=== PATIENT | male | born 1960 | race Hispanic/Latino ===

== ENCOUNTER 2020-08-04 06:11 | Inpatient (IN) | payer MEDICAID ==
--- NOTE | 2020-08-04 20:36 | Consultation ---
History of Present Illness - Reason for Consult Consult date: 08/04/20 medical management Requesting physician: ARI CHEEK - History of Present Illness 59 YO Male with Obesity,HTN, DM-diet controlled, Vascular Dementia with Behavior Disturbance admitted to [facility] for Psychiatric Stabilization. Consult placed cy Dr. Cheek for medical management. Pt seen and evaluated in his room. Pt denies fever, chills, CP, palpitations, NVD, Trauma, known COVID 19 Exposure, or recent ill contacts. No reported nursing events. No reported nursing events. Past History Past Medical History: hypertension, hyperlipidemia, other (See HPI) Past Surgical History: Other (eye surgery) Social history: single. denies: smoking, alcohol abuse, prescription drug abuse Family history: hypertension Medications and Allergies Allergies Allergy/AdvReac Type Severity Reaction Status Date / Time No Known Allergies Allergy Verified 08/04/20 13:23 Home Medications Medication Instructions Recorded Confirmed Last Taken Type Benztropine [Cogentin] 1 mg PO BID 08/04/20 08/04/20 Unknown History Divalproex ER [DepaKOTE ER] 1,000 mg PO HS 08/04/20 08/04/20 Unknown History Metoprolol Xl [Metoprolol 25 mg PO QDAY 08/04/20 08/04/20 Unknown History SUCCINATE ER TAB] Paliperidone [Invega] 6 mg PO DAILY 08/04/20 08/04/20 Unknown History Potassium Chloride [K-Dur] 10 meq PO QDAY 08/04/20 08/04/20 Unknown History Sertraline [Zoloft] 100 mg PO QDAY 08/04/20 08/04/20 Unknown History Simvastatin 40 mg PO HS 08/04/20 08/04/20 Unknown History Tamsulosin [Flomax] 0.4 mg PO QDAY 08/04/20 08/04/20 Unknown History amLODIPine 10 mg PO DAILY 08/04/20 08/04/20 Unknown History hydroCHLOROthiazide 12.5 mg PO DAILY 08/04/20 08/04/20 Unknown History [Hydrochlorothiazide] lisinopriL [Lisinopril] 10 mg PO DAILY 08/04/20 08/04/20 Unknown History traZODone [Desyrel] 150 mg PO QHS 08/04/20 08/04/20 Unknown History Review of Systems Constitutional: no weight loss, no fever, no chills, no sweats Ears, nose, mouth and throat: no ear pain, no tinnitis, no decreased hearing, no sinus pressure Cardiovascular: no chest pain, no rapid/irregular heart beat, no edema, no lightheadedness Respiratory: no cough, no cough with sputum, no hemoptysis, no shortness of breath Gastrointestinal: no abdominal pain, no nausea, no diarrhea, no constipation, no hematemesis, no coffee ground emesis Genitourinary Male: no hematuria, no flank pain, no discharge, no urinary frequency, no urinary hesitancy, no incontinence Rectal: no pain, no incontinence Musculoskeletal: no neck stiffness, no shooting arm pain, no low back pain, no shooting leg pain Integumentary: no rash, no pruritis, no sores Neurological: no head injury, no paralysis, no weakness, no numbness, no seizures, no syncope, no tremors, no ataxia Psychiatric: depression, no change in appetite, no disorientation, no hallucinations Endocrine: no cold intolerance, no polyphagia, no polydipsia, no polyuria, no nocturia, no flushing, no weight change Hematologic/Lymphatic: no easy bleeding, no lymphedema Allergic/Immunologic: no urticaria, no anaphylaxis Exam - Constitutional General appearance: Present: obese - EENT Eyes: Present: PERRL ENT: hearing intact, clear oral mucosa - Neck Neck: Present: supple, normal ROM - Respiratory Respiratory effort: normal Respiratory: bilateral: CTA - Cardiovascular Heart Sounds: Present: S1 & S2. Absent: rub, click - Extremities Extremities: pulses symmetrical, No edema Peripheral Pulses: within normal limits - Abdominal General gastrointestinal: Present: soft, non-tender, non-distended, normal bowel sounds Male genitourinary: Present: normal - Integumentary Integumentary: Present: clear, warm, dry - Musculoskeletal Musculoskeletal: gait normal, strength equal bilaterally - Psychiatric Psychiatric: appropriate mood/affect, intact judgment & insight - Neurologic Neurologic: CNII-XII intact, moves all extremities Results - Labs CBC & Chem 7: 08/06/20 10:16 08/06/20 10:16 Assessment and Plan - Patient Problems (1) Hypertension Current Visit: Yes Status: Acute Qualifiers: Hypertension type: essential hypertension Qualified Code(s): I10 - Essential (primary) hypertension Plan to address problem: Monitor blood pressure every shift, continue current monitoring. Patient remains normotensive at this time. (2) Diabetes Current Visit: Yes Status: Acute Plan to address problem: Diet controlled, consistent carbohydrate diet, supportive care. (3) Schizophrenia Current Visit: Yes Status: Acute Plan to address problem: Continue medical management. Supportive care. (4) Vascular dementia with behavioral disturbance Current Visit: Yes Status: Acute Plan to address problem: Verbal prompting, verbal redirection, supportive care, benzodiazepine therapy as clinically indicated
--- NOTE | 2020-08-05 07:38 | History and Physical Report ---
GP History & Physical - History of Present Illness Date of admission: 08/04/20 Date of Examination: 08/05/20 Reason for Admission: Impaired reality testing, Psychopathology interference History of Present Illness: HPI Attempt to evaluate patient in the room this morning, patient appears disorganized, expressing thoughts of internal stimuli responses. Patient reports he wants to fight wall, and also wants to love Socorro Wiley. Patient then began to ryhme and rap some songs, says he stung like a bee, fly like a butterfly, making random conversation with self. Patient had presented to [facility], with chief complaint of hallucinations. Patient reported he has been having more hallucinations by the day which seems to be getting worse, and affecting his daily life with some mental disturbances. At this moment patient had denied having any commanding hallucination attributed to SI or HI. Reported that he does see a psychiatrist symptoms has been worsening. PAST PSYCHIATRIC HISTORY: Diagnoses: Schizophrenia, insomnia Suicide attempts or Self-harm behavior Prior psychiatric hospitalizations Substance Abuse history: Previous psychiatric medications tried: Depakote, fluphenazine, trazodone, Ambien, Invega, sertraline, Outpatient treatment: None PAST MEDICAL HISTORY: Hypertension, diabetes, history of subdural hematoma Family Psychiatric History: None reported or documented SOCIAL HISTORY Marital Status: n/a Living Arrangements: n/a Employment Status: n/a Access to guns/weapons: n/a Education: n/a History of Abuse: n/a Legal History: n/a REVIEW OF SYSTEMS ROS cannot be reliably obtained from the patient due to his confusion. MENTAL STATUS EXAMINATION General Appearance and Behavior: Age appropriate, good hygiene, wearing appropriate clothes, poor eye contact, uncooperative with questioning. Cooperation: disengaged Psychomotor Behavior: Psychomotor agitation Mood: n/a Affect and affective range: euthymic, euphoric Thought Process: Illogical, echolalial Thought Content: delusional Speech: pressured, loud volume at times Intellectual Functioning: Average Suicidal Ideation: n/a Homicidal Ideation: n/a Impulse Control: Impaired Insight and Judgment: Limited insight and judgment Memory: impaired Attention: Divided attention impaired Orientation: Alert, Assessment and Plan - Psychiatric problem (1) Schizophrenia Current Visit: Yes Status: Acute Treatment Plan Will start patient on IM geodon BID for acute psychosis. Transition to oral meds Patient admitted for inpatient psychiatric evaluation, medication adjustment and close monitoring The patient's behavior, mood, sleep and appetite will be closely monitored. Patient enrolled in individual and group therapeutic sessions and encouraged to attend. Patient provided with a safe and structured environment. Patient's physical health needs will be addressed by the Hospitalist. Hospitalist Consulted Labs including CBC, CMP, Lipid profile and Hemoglobin A1C levels ordered for baseline reference Social Assessment will be completed and the Metal Burrer will work with patient and family to ensure a suitable and safe disposition Medication adjustment will be made as clinically indicated Usual Wellness Religious/Preservation: - Start Trazodone 50 mg po QHS & 50 mg po QHS PRN between 10 PM & 2 AM for insomnia - Start Melatonin 5 mg po QHS to promote circadian rhythm - Start Joanna-3 for brain health, reduce impulsivity, and as adjunctive treatment for mood disorder, continue upon discharge given overall benefits. - Start B1 prophylaxis with 200 mg po for 5 days The patient agreed on the treatment plan, understood the risk, benefit, alternative treatment, potential consequence of no treatment, and gave informed consent. Initial Certification Inpatient psych services: I certify that the inpatient psychiatric services are required for treatment that could reasonably be expected to improve the patient's condition. Estimated days: 7 Post hospital care: primary care provider, psychiatric provider Legal Status: Voluntary Patient Problems: Current Active Problems Schizophrenia (Acute) Reaction to Hospitalization: Accepting Medications and Allergies Allergies Allergy/AdvReac Type Severity Reaction Status Date / Time No Known Allergies Allergy Verified 08/04/20 13:23 Home Medications Medication Instructions Recorded Confirmed Last Taken Type Benztropine [Cogentin] 1 mg PO BID 08/04/20 08/04/20 Unknown History Divalproex ER [DepaKOTE ER] 1,000 mg PO 08/04/20 08/04/20 Unknown History Metoprolol Xl [Metoprolol 25 mg PO QDAY 08/04/20 08/04/20 Unknown History SUCCINATE ER TAB] Paliperidone [Invega] 6 mg PO DAILY 08/04/20 08/04/20 Unknown History Potassium Chloride [K-Dur] 10 meq PO QDAY 08/04/20 08/04/20 Unknown History Sertraline [Zoloft] 100 mg PO QDAY 08/04/20 08/04/20 Unknown History Simvastatin 40 mg PO HS 08/04/20 08/04/20 Unknown History Tamsulosin [Flomax] 0.4 mg PO QDAY 08/04/20 08/04/20 Unknown History amLODIPine 10 mg PO DAILY 08/04/20 08/04/20 Unknown History hydroCHLOROthiazide 12.5 mg PO DAILY 08/04/20 08/04/20 Unknown History [Hydrochlorothiazide] lisinopriL [Lisinopril] 10 mg PO DAILY 08/04/20 08/04/20 Unknown History traZODone [Desyrel] 150 mg PO QHS 08/04/20 08/04/20 Unknown History Results - Results Labs/Vitals: Laboratory Last Values POC Glucose 93 mg/dL (70-105) 08/04/20 11:55 Last Vital Signs Temp 98.8 F 08/04/20 19:37 Pulse 96 H 08/04/20 19:37 Resp 08/04/20 19:37 BP 156/79 08/04/20 19:37 Pulse Ox 97 08/04/20 19:37 Physical Examination - Constitutional Vitals: Vital Signs Temp Pulse Resp BP Pulse Ox 98.8 F 96 H 20 156/79 97 08/04/20 19:37 08/04/20 19:37 08/04/20 19:37 08/04/20 19:37 08/04/20 19:37 Temperature -Last 24 Hours Temperature 98.8 F Mental Status Exam - Vital signs Last Vital Signs Temp 98.8 F 08/04/20 19:37 Pulse 96 H 08/04/20 19:37 Resp 08/04/20 19:37 BP 156/79 08/04/20 19:37 Pulse Ox 97 08/04/20 19:37 Assessment and Plan - Psychiatric problem (1) Schizophrenia Current Visit: Yes Status: Acute Physician Certification - Certification Statement Physician Certification Statement: This is an acknowledgement statement that ANTHONY SILVESTRE is a 59 year old M who requires inpatient psychiatric admission for treatment which could reasonably be expected to improve the patient's condition for Estimated period of time patient will need to remain in the hospital: [ ] Plan for post-hospital care: [ ]
[2020-08-05] MEDS ORDERED: LORazepam 2 MG/ML VIAL IM PRN (10:09)
[2020-08-05] MEDS ORDERED: WATER FOR INJ Sterile (PF) 10 ML ONE ×2 (10:17→20:25)
[2020-08-05] MEDS: ZIPRASIDONE MESYLATE 20 MG VIAL IM SCH ×2 (10:25→21:25)
[2020-08-05] MEDS: BENZTROPINE 1 MG TAB PO SCH ×2 (11:00→21:25)
[2020-08-05] MEDS: PALIPERIDONE ER 3 MG TAB PO SCH (11:00)
[2020-08-05] MEDS: SERTRALINE 100 MG TAB PO SCH (11:00)
[2020-08-05] MEDS: DIVALPROEX ER 500 MG TAB PO SCH (21:25)
[2020-08-05] MEDS: traZODone 100 MG TAB PO SCH (21:25)
--- NOTE | 2020-08-06 08:32 | Progress Note ---
Subjective Date of service: 08/06/20 Principal diagnosis: (1) Schizophrenia Subjective Comment: Per Psych Nurse: Patient was very anxious hyper verbal and acting in a sexually inappropriate manner, pt walking in the hallway naked and talking loudly and touching himself, pt was redirected to his room, prn ativan 2mg im given, with good effect, pt was medications compliant, in bed sleeping at present, no distress noted, will continue to monitor. Psych Progress Patient seen this a.m. in activity room, reduced psychomotor activity, patient reported that today he plans to rest and participate in activities. He has a plan to take his medication and get his room clean. Patient apologized for his actions yesterday. Patient unaware about how he got naked and patient about the hallway in the presence of other patients. reason for continuing inpatient treatment: We will transition from IM Geodon to her Geodon today, continue to observe for mood lability REVIEW OF SYSTEMS ROS cannot be reliably obtained from the patient due to his confusion. MENTAL STATUS EXAMINATION General Appearance and Behavior: Age appropriate, good hygiene, wearing appropriate clothes, poor eye contact, uncooperative with questioning. Cooperation: disengaged Psychomotor Behavior: Psychomotor normal Mood: Feeling okay Affect and affective range: euthymic, euphoric Thought Process: Illogical, Thought Content: delusional Speech: pressured, loud volume at times Intellectual Functioning: Average Suicidal Ideation: Denies Homicidal Ideation: Denies Impulse Control: Impaired Insight and Judgment: Limited insight and judgment Memory: impaired Attention: Divided attention impaired Orientation: Alert, Assessment and Plan - Psychiatric problem (1) Schizophrenia Current Visit: Yes Status: Acute Treatment Plan Will start patient on IM geodon BID for acute psychosis. Transition to oral meds Patient admitted for inpatient psychiatric evaluation, medication adjustment and close monitoring The patient's behavior, mood, sleep and appetite will be closely monitored. Patient enrolled in individual and group therapeutic sessions and encouraged to attend. Patient provided with a safe and structured environment. Patient's physical health needs will be addressed by the Hospitalist. Hosp italist Consulted Labs including CBC, CMP, Lipid profile and Hemoglobin A1C levels ordered for baseline reference Social Assessment will be completed and the Gear Milling Machine Set Up Operator will work with patient and family to ensure a suitable and safe disposition Medication adjustment will be made as clinically indicated Usual Wellness Amish/Preservation: - Start Trazodone 50 mg po QHS & 50 mg po QHS PRN between 10 PM & 2 AM for insomnia - Start Melatonin 5 mg po QHS to promote circadian rhythm - Start Leander-3 for brain health, reduce impulsivity, and as adjunctive treatment for mood disorder, continue upon discharge given overall benefits. - Start B1 prophylaxis with 200 mg po for 5 days The patient agreed on the treatment plan, understood the risk, benefit, alternative treatment, potential consequence of no treatment, and gave informed consent. Initial Certification Inpatient psych services: I certify that the inpatient psychiatric services are required for treatment that could reasonably be expected to improve the patient's condition. Estimated days: 6 Post hospital care: primary care provider, psychiatric provider Assessment and Plan - Patient Problems (1) Schizophrenia Current Visit: Yes Status: Acute Medications and Allergies Allergies Allergy/AdvReac Type Severity Reaction Status Date / Time No Known Allergies Allergy Verified 08/04/20 13:23 Home Medications Medication Instructions Recorded Confirmed Last Taken Type Benztropine [Cogentin] 1 mg PO BID 08/04/20 08/04/20 Unknown History Divalproex ER [DepaKOTE ER] 1,000 mg PO 08/04/20 08/04/20 Unknown History Metoprolol Xl [Metoprolol 25 mg PO QDAY 08/04/20 08/04/20 Unknown History SUCCINATE ER TAB] Paliperidone [Invega] 6 mg PO DAILY 08/04/20 08/04/20 Unknown History Potassium Chloride [K-Dur] 10 meq PO QDAY 08/04/20 08/04/20 Unknown History Sertraline [Zoloft] 100 mg PO QDAY 08/04/20 08/04/20 Unknown History Simvastatin 40 mg PO 08/04/20 08/04/20 Unknown History Tamsulosin [Flomax] 0.4 mg PO QDAY 08/04/20 08/04/20 Unknown History amLODIPine 10 mg PO DAILY 08/04/20 08/04/20 Unknown History hydroCHLOROthiazide 12.5 mg PO DAILY 08/04/20 08/04/20 Unknown History [Hydrochlorothiazide] lisinopriL [Lisinopril] 10 mg PO DAILY 08/04/20 08/04/20 Unknown History traZODone [Desyrel] 150 mg PO QHS 08/04/20 08/04/20 Unknown History Active Meds: Active Medications Benztropine Mesylate (Benztropine 1 Mg Tab) 1 mg PO BID [facility] Last Admin: 08/05/20 21:25 Dose: 1 mg Documented by: Divalproex Sodium (Divalproex Er 500 Mg Tab) 1,000 mg PO [facility] Last Admin: 08/05/20 21:25 Dose: 1,000 mg Documented by: Lorazepam (Lorazepam 2 Mg/Ml Vial) 2 mg IM Q4H PRN PRN Reason: Agitation Last Admin: 08/05/20 12:33 Dose: 2 mg Documented by: Paliperidone (Paliperidone Er 3 Mg Tab) 6 mg PO QDAY [facility] Last Admin: 08/05/20 11:00 Dose: 6 mg Documented by: Sertraline HCl (Sertraline 100 Mg Tab) 100 mg PO QDAY [facility] Last Admin: 08/05/20 11:00 Dose: 100 mg Documented by: Trazodone HCl (Trazodone 100 Mg Tab) 100 mg PO QHS [facility] Last Admin: 08/05/20 21:25 Dose: 100 mg Documented by: Ziprasidone (Ziprasidone Mesylate 20 Mg Vial) 10 mg IM BID [facility] Stop: 08/06/20 10:01 Last Admin: 08/05/20 21:25 Dose: 10 mg Documented by: Results - Results Labs/Vitals: Laboratory Last Values POC Glucose 90 mg/dL (70-105) 08/06/20 06:20 Last Vital Signs Temp 98.6 F 08/05/20 22:00 Pulse 86 08/05/20 22:00 Resp 18 08/05/20 22:00 BP 146/90 08/05/20 22:00 Pulse Ox 97 08/05/20 22:00
[2020-08-06] MEDS ORDERED: HALOPERIDOL LACTATE 5 MG/1 ML INJ IM PRN (09:37)
[2020-08-06] MEDS: SERTRALINE 100 MG TAB PO SCH (09:39)
[2020-08-06] MEDS: BENZTROPINE 1 MG TAB PO SCH ×2 (09:39→21:32)
[2020-08-06] MEDS: PALIPERIDONE ER 3 MG TAB PO SCH (09:39)
[2020-08-06] MEDS: ZIPRASIDONE MESYLATE 20 MG VIAL IM SCH (10:02)
[2020-08-06] MEDS: ZIPRASIDONE 40 MG CAP PO SCH ×2 (10:04→21:31)
[2020-08-06 11:44] LABS: Alanine Aminotransferase 17 units/L (7-56); Albumin 4.2 g/dL (3.9-5); BUN/Creatinine Ratio 24; Blood Urea Nitrogen 17 mg/dL (9-20); Calcium 9.7 mg/dL (8.4-10.2); Chol/HDL Ratio 2.21 %; HDL Cholesterol 57 mg/dL (40-59); Hemolysis Index 16; LDL Cholesterol,Direct 60 mg/dL (50-130)
[2020-08-06 11:48] LABS: Basophils % (Auto) 0.2 % (0.0-1.8); Eosinophils # (Auto) 0.1 K/mm3 (0.0-0.4); Eosinophils % (Auto) 1.4 % (0.0-4.3); Hemoglobin 13.8 gm/dl (11.8-15.2); Mean Corpuscular HGB Conc 35 % (32-34); Mean Corpuscular Volume 92 fl (84-94); Monocytes # (Auto) 0.6 K/mm3 (0.0-0.8); Monocytes % (Auto) 11.2 % (0.0-7.3); Platelet Count 137 K/mm3 (140-440); Red Blood Count 4.36 M/mm3 (3.65-5.03); Red Cell Distribution Width 13.2 % (13.2-15.2)
[2020-08-06] MEDS: DIVALPROEX ER 500 MG TAB PO SCH (21:31)
[2020-08-06] MEDS: traZODone 100 MG TAB PO SCH (21:32)
--- NOTE | 2020-08-07 08:40 | Progress Note ---
Subjective Date of service: 08/07/20 Principal diagnosis: (1) Schizophrenia Subjective Comment: Per Psych Nurse: Patient report received, patient presently sitting in activity room working on [employer]. Patient spoke in a soft tone asking "when will they be allowed to go outside on the grass"? Explained to patient he is in the hospital at [facility] and here they are not allowed to go outside. The are allowed to come to the activity room and there are different daily activities and therapies. Patient excepted explanation and stated softly "Ok". Patient will be observed closely this shift. Initialized on 08/06/20 20:17 - END OF NOTE Psych Progress Patient seen today, patient appears less talkative and less hyperactive. Patient reported he is here because he was hearing voices in his head, patient did talk about going to the hospital willingly by himself to complain about his symptoms. Patient stated he has a community group that he goes to when he is at home that also helps with his social life and overall wellbeing. Patient reported he is feeling a little bit better today, but does do some things in his mind that he sees, patient reported his still sees people in the street that are racist and members of the KKK and all sorts. Report reports voices in his head are less loud than before reason for continuing inpatient treatment: Disorganized thoughts, ontinue to observe for mood lability REVIEW OF SYSTEMS ROS cannot be reliably obtained from the patient due to his confusion. MENTAL STATUS EXAMINATION General Appearance and Behavior: Age appropriate, good hygiene, wearing appropriate clothes, poor eye contact, uncooperative with questioning. Cooperation: disengaged Psychomotor Behavior: Psychomotor normal Mood: Feeling okay Affect and affective range: euthymic, euphoric Thought Process: Illogical, Thought Content: delusional Speech: pressured, loud volume at times Intellectual Functioning: Average Suicidal Ideation: Denies Homicidal Ideation: Denies Impulse Control: Impaired Insight and Judgment: Limited insight and judgment Memory: impaired Attention: Divided attention impaired Orientation: Alert, Assessment and Plan - Psychiatric problem (1) Schizophrenia Current Visit: Yes Status: Acute Treatment Plan Patient on Oral geodeon, dose increased today Patient admitted for inpatient psychiatric evaluation, medication adjustment and close monitoring The patient's behavior, mood, sleep and appetite will be closely monitored. Patient enrolled in individual and group therapeutic sessions and encouraged to attend. Patient provided with a safe and structured environment. Patient's physical health needs will be addressed by the Hospitalist. Hospitalist Consulted Labs including CBC, CMP, Lipid profile and Hemoglobin A1C levels ordered for baseline reference Social Assessment will be completed and the Pig Machine Crane Operator will work with patient and family to ensure a suitable and safe disposition Medication adjustment will be made as clinically indicated Usual Wellness Baptism/Preservation: - Start Trazodone 50 mg po QHS & 50 mg po QHS PRN between 10 PM & 2 AM for insomnia - Start Melatonin 5 mg po QHS to promote circadian rhythm - Start [place]-3 for brain health, reduce impulsivity, and as adjunctive treatment for mood disorder, continue upon discharge given overall benefits. - Start B1 prophylaxis with 200 mg po for 5 days The patient agreed on the treatment plan, understood the risk, benefit, alternative treatment, potential consequence of no treatment, and gave informed consent. Initial Certification Inpatient psych services: I certify that the inpatient psychiatric services are required for treatment that could reasonably be expected to improve the patient's condition. Estimated days: 5 Post hospital care: primary care provider, psychiatric provider Assessment and Plan - Patient Problems (1) Schizophrenia Current Visit: Yes Status: Acute Medications and Allergies Allergies Allergy/AdvReac Type Severity Reaction Status Date / Time No Known Allergies Allergy Verified 08/04/20 13:23 Home Medications Medication Instructions Recorded Confirmed Last Taken Type Benztropine [Cogentin] 1 mg PO BID 08/04/20 08/04/20 Unknown History Divalproex ER [DepaKOTE ER] 1,000 mg PO 08/04/20 08/04/20 Unknown History Metoprolol Xl [Metoprolol 25 mg PO QDAY 08/04/20 08/04/20 Unknown History SUCCINATE ER TAB] Paliperidone [Invega] 6 mg PO DAILY 08/04/20 08/04/20 Unknown History Potassium Chloride [K-Dur] 10 meq PO QDAY 08/04/20 08/04/20 Unknown History Sertraline [Zoloft] 100 mg PO QDAY 08/04/20 08/04/20 Unknown History Simvastatin 40 mg PO HS 08/04/20 08/04/20 Unknown History Tamsulosin [Flomax] 0.4 mg PO QDAY 08/04/20 08/04/20 Unknown History amLODIPine 10 mg PO DAILY 08/04/20 08/04/20 Unknown History hydroCHLOROthiazide 12.5 mg PO DAILY 08/04/20 08/04/20 Unknown History [Hydrochlorothiazide] lisinopriL [Lisinopril] 10 mg PO DAILY 08/04/20 08/04/20 Unknown History traZODone [Desyrel] 150 mg PO QHS 08/04/20 08/04/20 Unknown History Active Meds: Active Medications Benztropine Mesylate (Benztropine 1 Mg Tab) 1 mg PO BID [facility] Last Admin: 08/06/20 21:32 Dose: 1 mg Documented by: Divalproex Sodium (Divalproex Er 500 Mg Tab) 1,000 mg PO HS [facility] Last Admin: 08/06/20 21:31 Dose: 1,000 mg Documented by: Haloperidol Lactate (Haloperidol Lactate 5 Mg/1 Ml Inj) 5 mg IM Q6H PRN PRN Reason: Agitation Lorazepam (Lorazepam 2 Mg/Ml Vial) 2 mg IM Q4H PRN PRN Reason: Agitation Last Admin: 08/05/20 12:33 Dose: 2 mg Documented by: Paliperidone (Paliperidone Er 3 Mg Tab) 6 mg PO QDAY [facility] Last Admin: 08/06/20 09:39 Dose: 6 mg Documented by: Sertraline HCl (Sertraline 100 Mg Tab) 100 mg PO QDAY [facility] Last Admin: 08/06/20 09:39 Dose: 100 mg Documented by: Trazodone HCl (Trazodone 100 Mg Tab) 100 mg PO QHS [facility] Last Admin: 08/06/20 21:32 Dose: 100 mg Documented by: Ziprasidone (Ziprasidone 40 Mg Cap) 40 mg PO BID [facility] Last Admin: 08/06/20 21:31 Dose: 40 mg Documented by: Results - Results Labs/Vitals: Laboratory Last Values WBC 5.5 K/mm3 (4.5-11.0) 08/06/20 10:16 RBC 4.36 M/mm3 (3.65-5.03) 08/06/20 10:16 Hgb 13.8 gm/dl (11.8-15.2) 08/06/20 10:16 Hct 40.0 % (35.5-45.6) 08/06/20 10:16 MCV 92 fl (84-94) 08/06/20 10:16 MCH 32 pg (28-32) 08/06/20 10:16 MCHC 35 % (32-34) H 08/06/20 10:16 RDW 13.2 % (13.2-15.2) 08/06/20 10:16 Plt Count 137 K/mm3 (140-440) L 08/06/20 10:16 Lymph % (Auto) 18.0 % (13.4-35.0) 08/06/20 10:16 [place] % (Auto) 11.2 % (0.0-7.3) H 08/06/20 10:16 Eos % (Auto) 1.4 % (0.0-4.3) 08/06/20 10:16 Baso % (Auto) 0.2 % (0.0-1.8) 08/06/20 10:16 Lymph # (Auto) 1.0 K/mm3 (1.2-5.4) L 08/06/20 10:16 [place] # (Auto) 0.6 K/mm3 (0.0-0.8) 08/06/20 10:16 Eos # (Auto) 0.1 K/mm3 (0.0-0.4) 08/06/20 10:16 Baso # (Auto) 0.0 K/mm3 (0.0-0.1) 08/06/20 10:16 Seg Neutrophils % 69.2 % (40.0-70.0) 08/06/20 10:16 Seg Neutrophils # 3.8 K/mm3 (1.8-7.7) 08/06/20 10:16 Sodium 134 mmol/L (137-145) L 08/06/20 10:16 Potassium 4.5 mmol/L (3.6-5.0) 08/06/20 10:16 Chloride 96.5 mmol/L (98-107) L 08/06/20 10:16 Carbon Dioxide 28 mmol/L (22-30) 08/06/20 10:16 Anion Gap 14 mmol/L 08/06/20 10:16 BUN 17 mg/dL (9-20) 08/06/20 10:16 Creatinine 0.7 mg/dL (0.8-1.3) L 08/06/20 10:16 Estimated GFR > 60 ml/min 08/06/20 10:16 BUN/Creatinine Ratio 24 % 08/06/20 10:16 Glucose 91 mg/dL (75-100) 08/06/20 10:16 POC Glucose 90 mg/dL (70-105) 08/06/20 06:20 Hemoglobin A1c 5.3 % (4-6) 08/06/20 10:16 Calcium 9.7 mg/dL (8.4-10.2) 08/06/20 10:16 Total Bilirubin 0.30 mg/dL (0.1-1.2) 08/06/20 10:16 AST 26 units/L (5-40) 08/06/20 10:16 ALT 17 units/L (7-56) 08/06/20 10:16 Alkaline Phosphatase 38 units/L (35-129) 08/06/20 10:16 Total Protein 7.0 g/dL (6.3-8.2) 08/06/20 10:16 Albumin 4.2 g/dL (3.9-5) 08/06/20 10:16 Albumin/Globulin Ratio 1.5 % 08/06/20 10:16 Triglycerides 67 mg/dL (2-149) 08/06/20 10:16 Cholesterol 126 mg/dL (50-199) 08/06/20 10:16 LDL Cholesterol Direct 60 mg/dL (50-130) 08/06/20 10:16 HDL Cholesterol 57 mg/dL (40-59) 08/06/20 10:16 Cholesterol/HDL Ratio 2.21 % 08/06/20 10:16 Last Vital Signs Temp 98.5 F 08/06/20 19:27 Pulse 72 08/06/20 19:27 Resp 16 08/06/20 19:27 BP 129/78 08/06/20 19:27 Pulse Ox 98 08/06/20 19:27
[2020-08-07] MEDS: SERTRALINE 100 MG TAB PO SCH (09:25)
[2020-08-07] MEDS: PALIPERIDONE ER 3 MG TAB PO SCH (09:25)
[2020-08-07] MEDS: ZIPRASIDONE 40 MG CAP PO SCH (09:25)
[2020-08-07] MEDS: BENZTROPINE 1 MG TAB PO SCH ×2 (09:25→21:29)
[2020-08-07] MEDS ORDERED: ZIPRASIDONE 40 MG CAP PO SCH (09:50)
[2020-08-07] MEDS ORDERED: ZIPRASIDONE 20 MG CAP PO SCH (10:00)
[2020-08-07] MEDS: DIVALPROEX ER 500 MG TAB PO SCH (21:28)
[2020-08-07] MEDS: traZODone 100 MG TAB PO SCH (21:29)
[2020-08-07] MEDS: ZIPRASIDONE 60 MG CAP PO SCH (21:29)
--- NOTE | 2020-08-08 07:44 | Progress Note ---
Subjective Date of service: 08/08/20 Principal diagnosis: (1) Schizophrenia Subjective Comment: Per Psych Nurse: Patient has isolated to himself at times but then rejoins his peers. His interactions can be bizarre at times. He will make bizarre movements while walking. He is pleasant with interactions. His appetite is good and he is medication compliant. He denies si/hi/ah/vh but can be observed talking to himself. Will continue to monitor patient for safety. Psych Progress Patient having breakfast in room, wearing appropriate clothing. Patient states he is [id number] forward to reading and studying in his room today, most likely his bible. Patient reports feeling better enough to start thinking about going home. reason for continuing inpatient treatment: Disorganized thoughts, continue to observe for mood liability REVIEW OF SYSTEMS ROS cannot be reliably obtained from the patient due to his confusion. MENTAL STATUS EXAMINATION General Appearance and Behavior: Age appropriate, good hygiene, wearing appropriate clothes, poor eye contact, uncooperative with questioning. Cooperation: disengaged Psychomotor Behavior: Psychomotor normal Mood: Feeling okay Affect and affective range: congruent with mood Thought Process: logical, Thought Content: delusional Speech: Normal volume rate and rythm Intellectual Functioning: Average Suicidal Ideation: Denies Homicidal Ideation: Denies Impulse Control: Impaired Insight and Judgment: Improved insight and judgment Memory: improved Attention: normal Orientation: Alert, oriented Assessment and Plan - Psychiatric problem (1) Schizophrenia Current Visit: Yes Status: Acute Treatment Plan Patient on Oral geodeon, dose increased today Patient admitted for inpatient psychiatric evaluation, medication adjustment and close monitoring The patient's behavior, mood, sleep and appetite will be closely monitored. Patient enrolled in individual and group therapeutic sessions and encouraged to attend. Patient provided with a safe and structured environment. Patient's physical health needs will be addressed by the Hospitalist. Hospitalist Consulted Labs including CBC, CMP, Lipid profile and Hemoglobin A1C levels ordered for baseline reference Social Assessment will be completed and the Brim Plater will work with patient and family to ensure a suitable and safe disposition Medication adjustment will be made as clinically indicated Usual Wellness Orthodox/Preservation: - Start Trazodone 50 mg po QHS & 50 mg po QHS PRN between 10 PM & 2 AM for insomnia - Start Melatonin 5 mg po QHS to promote circadian rhythm - Start [place]-3 for brain health, reduce impulsivity, and as adjunctive treatment for mood disorder, continue upon discharge given overall benefits. - Start B1 prophylaxis with 200 mg po for 5 days The patient agreed on the treatment plan, understood the risk, benefit, alternative treatment, potential consequence of no treatment, and gave informed consent. Initial Certification Inpatient psych services: I certify that the inpatient psychiatric services are required for treatment that could reasonably be expected to improve the patient's condition. Estimated days: 5 Post hospital care: primary care provider, psychiatric provider Assessment and Plan - Patient Problems (1) Schizophrenia Current Visit: Yes Status: Acute Medications and Allergies Allergies Allergy/AdvReac Type Severity Reaction Status Date / Time No Known Allergies Allergy Verified 08/04/20 13:23 Home Medications Medication Instructions Recorded Confirmed Last Taken Type Benztropine [Cogentin] 1 mg PO BID 08/04/20 08/04/20 Unknown History Divalproex ER [DepaKOTE ER] 1,000 mg PO 08/04/20 08/04/20 Unknown History Metoprolol Xl [Metoprolol 25 mg PO QDAY 08/04/20 08/04/20 Unknown History SUCCINATE ER TAB] Paliperidone [Invega] 6 mg PO DAILY 08/04/20 08/04/20 Unknown History Potassium Chloride [K-Dur] 10 meq PO QDAY 08/04/20 08/04/20 Unknown History Sertraline [Zoloft] 100 mg PO QDAY 08/04/20 08/04/20 Unknown History Simvastatin 40 mg PO HS 08/04/20 08/04/20 Unknown History Tamsulosin [Flomax] 0.4 mg PO QDAY 08/04/20 08/04/20 Unknown History amLODIPine 10 mg PO DAILY 08/04/20 08/04/20 Unknown History hydroCHLOROthiazide 12.5 mg PO DAILY 08/04/20 08/04/20 Unknown History [Hydrochlorothiazide] lisinopriL [Lisinopril] 10 mg PO DAILY 08/04/20 08/04/20 Unknown History traZODone [Desyrel] 150 mg PO QHS 08/04/20 08/04/20 Unknown History Active Meds: Active Medications Benztropine Mesylate (Benztropine 1 Mg Tab) 1 mg PO BID [facility] Last Admin: 08/07/20 21:29 Dose: 1 mg Documented by: Divalproex Sodium (Divalproex Er 500 Mg Tab) 1,000 mg PO [facility] Last Admin: 08/07/20 21:28 Dose: 1,000 mg Documented by: Haloperidol Lactate (Haloperidol Lactate 5 Mg/1 Ml Inj) 5 mg IM Q6H PRN PRN Reason: Agitation Lorazepam (Lorazepam 2 Mg/Ml Vial) 2 mg IM Q4H PRN PRN Reason: Agitation Last Admin: 08/05/20 12:33 Dose: 2 mg Documented by: Paliperidone (Paliperidone Er 3 Mg Tab) 6 mg PO QDAY [facility] Last Admin: 08/07/20 09:25 Dose: 6 mg Documented by: Sertraline HCl (Sertraline 100 Mg Tab) 100 mg PO QDAY [facility] Last Admin: 08/07/20 09:25 Dose: 100 mg Documented by: Trazodone HCl (Trazodone 100 Mg Tab) 100 mg PO QHS [facility] Last Admin: 08/07/20 21:29 Dose: 100 mg Documented by: Ziprasidone (Ziprasidone 60 Mg Cap) 60 mg PO BID [facility] Last Admin: 08/07/20 21:29 Dose: 60 mg Documented by: Results - Results Labs/Vitals: Laboratory Last Values WBC 5.5 K/mm3 (4.5-11.0) 08/06/20 10:16 RBC 4.36 M/mm3 (3.65-5.03) 08/06/20 10:16 Hgb 13.8 gm/dl (11.8-15.2) 08/06/20 10:16 Hct 40.0 % (35.5-45.6) 08/06/20 10:16 MCV 92 fl (84-94) 08/06/20 10:16 MCH 32 pg (28-32) 08/06/20 10:16 MCHC 35 % (32-34) H 08/06/20 10:16 RDW 13.2 % (13.2-15.2) 08/06/20 10:16 Plt Count 137 K/mm3 (140-440) L 08/06/20 10:16 Lymph % (Auto) 18.0 % (13.4-35.0) 08/06/20 10:16 [place] % (Auto) 11.2 % (0.0-7.3) H 08/06/20 10:16 Eos % (Auto) 1.4 % (0.0-4.3) 08/06/20 10:16 Baso % (Auto) 0.2 % (0.0-1.8) 08/06/20 10:16 Lymph # (Auto) 1.0 K/mm3 (1.2-5.4) L 08/06/20 10:16 [place] # (Auto) 0.6 K/mm3 (0.0-0.8) 08/06/20 10:16 Eos # (Auto) 0.1 K/mm3 (0.0-0.4) 08/06/20 10:16 Baso # (Auto) 0.0 K/mm3 (0.0-0.1) 08/06/20 10:16 Seg Neutrophils % 69.2 % (40.0-70.0) 08/06/20 10:16 Seg Neutrophils # 3.8 K/mm3 (1.8-7.7) 08/06/20 10:16 Sodium 134 mmol/L (137-145) L 08/06/20 10:16 Potassium 4.5 mmol/L (3.6-5.0) 08/06/20 10:16 Chloride 96.5 mmol/L (98-107) L 08/06/20 10:16 Carbon Dioxide 28 mmol/L (22-30) 08/06/20 10:16 Anion Gap 14 mmol/L 08/06/20 10:16 BUN 17 mg/dL (9-20) 08/06/20 10:16 Creatinine 0.7 mg/dL (0.8-1.3) L 08/06/20 10:16 Estimated GFR > 60 ml/min 08/06/20 10:16 BUN/Creatinine Ratio 24 % 08/06/20 10:16 Glucose 91 mg/dL (75-100) 08/06/20 10:16 POC Glucose 62 mg/dL (70-105) L 08/07/20 07:55 Hemoglobin A1c 5.3 % (4-6) 08/06/20 10:16 Calcium 9.7 mg/dL (8.4-10.2) 08/06/20 10:16 Total Bilirubin 0.30 mg/dL (0.1-1.2) 08/06/20 10:16 AST 26 units/L (5-40) 08/06/20 10:16 ALT 17 units/L (7-56) 08/06/20 10:16 Alkaline Phosphatase 38 units/L (35-129) 08/06/20 10:16 Total Protein 7.0 g/dL (6.3-8.2) 08/06/20 10:16 Albumin 4.2 g/dL (3.9-5) 08/06/20 10:16 Albumin/Globulin Ratio 1.5 % 08/06/20 10:16 Triglycerides 67 mg/dL (2-149) 08/06/20 10:16 Cholesterol 126 mg/dL (50-199) 08/06/20 10:16 LDL Cholesterol Direct 60 mg/dL (50-130) 08/06/20 10:16 HDL Cholesterol 57 mg/dL (40-59) 08/06/20 10:16 Cholesterol/HDL Ratio 2.21 % 08/06/20 10:16 Last Vital Signs Temp 98.5 F 08/07/20 19:32 Pulse 64 08/07/20 19:32 Resp 20 08/07/20 19:32 BP 167/76 08/07/20 19:32 Pulse Ox 97 08/07/20 19:32
[2020-08-08] MEDS: SERTRALINE 100 MG TAB PO SCH (10:12)
[2020-08-08] MEDS: PALIPERIDONE ER 3 MG TAB PO SCH (10:12)
[2020-08-08] MEDS: ZIPRASIDONE 60 MG CAP PO SCH (10:12)
[2020-08-08] MEDS: BENZTROPINE 1 MG TAB PO SCH (10:13)
[2020-08-08 14:31] VITALS: BP 154/76
--- NOTE | 2020-08-08 16:53 | Discharge Summary ---
Providers - Providers Date of Admission: 08/04/20 11:17 Date of discharge: 08/08/20 Attending physician: ARI CHEEK MD 08/04/20 08:08 Consult to Physician [CONS] Routine Comment: Consulting Provider: VENKAT GARG Physician Instructions: Reason For Exam: manage medical conditons Primary care physician: HEALTH AND WELLNESS ADVISOR Hospitalization Reason for admission: Acute psychosis Condition: Good Hospital course: The patient was provided inpatient psychiatric treatment with safe and supportive environment, group/individual therapy, psychiatric medication, medication adjustment, adverse effect monitor, medical evaluation, medical treatment, social service assessment, social support meeting, placement ass essment and psycho-education. The patients mood, cognition, behavior, motivation, compliance to treatment and appreciation on family/social support are improved and stabilized. At the time of discharge, the patient had no suicidal ideas, no homicidal ideas, no aggressive thoughts, no endangering behavior and no debilitating adverse effects. The patient agreed on the treatment plan, understood the risk, benefit, alternative treatment, potential consequence of no treatment, and gave informed consent. Disposition: DC-01 TO HOME OR SELFCARE Allergies/Adverse Reactions: Allergies No Known Allergies Allergy (Verified 08/04/20 13:23) Vital Signs: Last Vital Signs Temp 99.1 F 08/08/20 10:13 Pulse 71 08/08/20 10:13 Resp 18 08/08/20 10:13 BP 154/76 08/08/20 10:13 Pulse Ox 97 08/08/20 10:13 Last Lab: Laboratory Last Values WBC 5.5 K/mm3 (4.5-11.0) 08/06/20 10:16 RBC 4.36 M/mm3 (3.65-5.03) 08/06/20 10:16 Hgb 13.8 gm/dl (11.8-15.2) 08/06/20 10:16 Hct 40.0 % (35.5-45.6) 08/06/20 10:16 MCV 92 fl (84-94) 08/06/20 10:16 MCH 32 pg (28-32) 08/06/20 10:16 MCHC 35 % (32-34) H 08/06/20 10:16 RDW 13.2 % (13.2-15.2) 08/06/20 10:16 Plt Count 137 K/mm3 (140-440) L 08/06/20 10:16 Lymph % (Auto) 18.0 % (13.4-35.0) 08/06/20 10:16 [place] % (Auto) 11.2 % (0.0-7.3) H 08/06/20 10:16 Eos % (Auto) 1.4 % (0.0-4.3) 08/06/20 10:16 Baso % (Auto) 0.2 % (0.0-1.8) 08/06/20 10:16 Lymph # (Auto) 1.0 K/mm3 (1.2-5.4) L 08/06/20 10:16 [place] # (Auto) 0.6 K/mm3 (0.0-0.8) 08/06/20 10:16 Eos # (Auto) 0.1 K/mm3 (0.0-0.4) 08/06/20 10:16 Baso # (Auto) 0.0 K/mm3 (0.0-0.1) 08/06/20 10:16 Seg Neutrophils % 69.2 % (40.0-70.0) 08/06/20 10:16 Seg Neutrophils # 3.8 K/mm3 (1.8-7.7) 08/06/20 10:16 Sodium 134 mmol/L (137-145) L 08/06/20 10:16 Potassium 4.5 mmol/L (3.6-5.0) 08/06/20 10:16 Chloride 96.5 mmol/L (98-107) L 08/06/20 10:16 Carbon Dioxide 28 mmol/L (22-30) 08/06/20 10:16 Anion Gap 14 mmol/L 08/06/20 10:16 BUN 17 mg/dL (9-20) 08/06/20 10:16 Creatinine 0.7 mg/dL (0.8-1.3) L 08/06/20 10:16 Estimated GFR > 60 ml/min 08/06/20 10:16 BUN/Creatinine Ratio 24 % 08/06/20 10:16 Glucose 91 mg/dL (75-100) 08/06/20 10:16 POC Glucose 96 mg/dL (70-105) 08/08/20 07:59 Hemoglobin A1c 5.3 % (4-6) 08/06/20 10:16 Calcium 9.7 mg/dL (8.4-10.2) 08/06/20 10:16 Total Bilirubin 0.30 mg/dL (0.1-1.2) 08/06/20 10:16 AST 26 units/L (5-40) 08/06/20 10:16 ALT 17 units/L (7-56) 08/06/20 10:16 Alkaline Phosphatase 38 units/L (35-129) 08/06/20 10:16 Total Protein 7.0 g/dL (6.3-8.2) 08/06/20 10:16 Albumin 4.2 g/dL (3.9-5) 08/06/20 10:16 Albumin/Globulin Ratio 1.5 % 08/06/20 10:16 Triglycerides 67 mg/dL (2-149) 08/06/20 10:16 Cholesterol 126 mg/dL (50-199) 08/06/20 10:16 LDL Cholesterol Direct 60 mg/dL (50-130) 08/06/20 10:16 HDL Cholesterol 57 mg/dL (40-59) 08/06/20 10:16 Cholesterol/HDL Ratio 2.21 % 08/06/20 10:16 - Discharge Diagnoses (1) Schizophrenia Status: Acute Core Measure Documentation - Palliative Care Palliative Care/ Comfort Measures: Not Applicable - Core Measures Any of the following diagnoses?: none Exam - Constitutional Vitals: Temp Pulse Resp BP Pulse Ox 99.1 F 71 18 154/76 97 08/08/20 10:13 08/08/20 10:13 08/08/20 10:13 08/08/20 10:13 08/08/20 10:13 General appearance: Present: no acute distress - EENT Eyes: Present: PERRL, EOM intact ENT: hearing intact, clear oral mucosa - Neck Neck: Present: supple, normal ROM - Respiratory Respiratory effort: normal - Extremities Extremities: no ischemia - Abdominal General gastrointestinal: Present: deferred Male genitourinary: Present: deferred - Integumentary Integumentary: Present: clear, warm, dry Plan Activity: no restrictions Care Plan Goals: Goals: Maintain good and stable mental health. Plan of Treatment: The patient should be compliant with medications, not to use drugs and not to drink alcohol. The patient understands that if suicidal ideas, homicidal ideas, or any endangering thoughts arise, the patient should immediately seek for emergent assistance including but not limited to crisis hot line and emergency room. Follow up with outpatient Psychiatrist and PCP within 7 - 14 days of discharge. Follow up with: PRIMARY CARE,MD [Primary Care Provider] - 7 Days Prescriptions: traZODone [Desyrel] 150 mg PO QHS #30 Benztropine [Cogentin] 1 mg PO BID #60 tab Divalproex ER [Depakote ER] 1,000 mg PO HS #60 tab Ziprasidone [Geodon] 60 mg PO BID #60 capsule Sertraline [Zoloft] 100 mg PO QDAY #30 tab
== END 2020-08-08 18:20 | disposition home or self-care (01) | DRG 885 ==
LOC: UNDOADMIN 06:11 → 3A 06:11 → 5A 11:17
PROVIDERS: ADMIT Psychiatry & Neurology Psychiatry; ATTEND Psychiatry & Neurology Psychiatry
DX: F20.9 Schizophrenia, unspecified (principal); E11.9 Type 2 diabetes mellitus without complications; I10 Essential (primary) hypertension; F01.51 Vascular dementia, unspecified severity, with behavioral disturbance; E66.9 Obesity, unspecified; E78.5 Hyperlipidemia, unspecified; Z79.899 Other long term (current) drug therapy; Z79.891 Long term (current) use of opiate analgesic; Z79.4 Long term (current) use of insulin; Z82.49 Family history of ischemic heart disease and other diseases of the circulatory system
CPT/HCPCS: 80053; 80061; 82962; 83036; 85025; G0378; J2060; J3486